=== PATIENT | female | born 1970 | race Caucasian/White ===

== ENCOUNTER 2019-09-28 18:18 | Emergency (ER) | payer OTHER, SELFPAY ==
--- NOTE | ~2019-09-28 | XR_ITS ---
XR knee RT min 4V, XR tibia fibula RT 2V 09/28/2019 19:03 INDICATION: Right knee and leg pain after recent injury PROCEDURE: 4 views right knee. 2 views right tibia/fibula. COMPARISON: No prior studies for comparison. FINDINGS: Fracture, dislocation or subluxation is not identified. Small joint effusion. Mild osteoart hritis of the right knee. No foreign bodies are identified. IMPRESSION: 1: No acute fracture. Reviewed, dictated and finalized at location A. IMPRESSION: 1: No acute fracture. IMPRESSION: 1: No acute fracture.
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
[2019-09-28 18:39] VITALS: BP 129/79; PULSE 68; RESP 16; TEMP 36.6; O2SAT 98
== END 2019-09-28 19:25 | disposition home or self-care (01) ==
PROVIDERS: Emergency Provider Nurse Practitioner Family; PCP Internal Medicine
DX: S89.91XA Unspecified injury of right lower leg, initial encounter (principal); X50.9XXA Other and unspecified overexertion or strenuous movements or postures, initial encounter; I10 Essential (primary) hypertension; K21.9 Gastro-esophageal reflux disease without esophagitis; E03.9 Hypothyroidism, unspecified
CPT/HCPCS: 73564; 73590; 99214; G0463

== ENCOUNTER 2020-08-31 08:58 | Outpatient (CLI) | payer OTHER, SELFPAY ==
--- NOTE | ~2020-08-31 | XR_ITS ---
EXAMINATION: XR foot LT min 3V EXAM DATE: 08/31/2020 09:27 INDICATION: No known recent injury provided at this time. Pain of the left foot. TECHNIQUE: Left foot dorsoplantar, lateral and oblique projections obtained and reviewed. There is n o prior study for comparison. FINDINGS: Left metatarsal bones unremarkable. Calcaneal Evaristo's deformity. There are no acute fra ctures or dislocations identified. There is no subcutaneous gas. The soft tissue is unremarkable. There are no radiopaque foreign bodies. There are no bony erosions identified. IMPRESSION: Calcaneal Evaristo's deformity. Reviewed, dictated and finalized at location A.
--- NOTE | ~2020-08-31 | XR_ITS ---
EXAMINATION: XR chest 2V 08/31/2020 09:27 INDICATION: Shortness of breath PROCEDURE: 2 view chest COMPARISON: 01/27/2012 FINDINGS: The lungs are clear. The cardiomediastinal silhouette is within normal limits. There are no pleural effusions. There is no pneumothorax suspected. IMPRESSION: 1: NO ACUTE CARDIOPULMONARY DISEASE. Reviewed, dictated and finalized at location B.
--- NOTE | ~2020-08-31 | XR_ITS ---
EXAMINATION: XR foot RT min 3V EXAM DATE: 08/31/2020 09:27 INDICATION: No known recent injury provided at this time. Pain of the right foot. TECHNIQUE: Right foot dorsoplantar, lateral and oblique projections obtained and reviewed. Correlati on is made to Lateral foot same date. FINDINGS: Right metatarsal bones unremarkable. Calcaneal Evaristo's deformity, symmetric to contrala teral side. There are no bony erosions identified. There are no acute fractures or dislocations ident ified. There is no subcutaneous gas. The soft tissue is unremarkable. There are no radiopaque for eign bodies. IMPRESSION: Calcaneal Evaristo's deformity. Reviewed, dictated and finalized at location A.
== END 2020-08-31 08:59 ==
PROVIDERS: Visit Provider Internal Medicine
DX: R06.02 Shortness of breath (principal); M79.671 Pain in right foot; M92.62 Juvenile osteochondrosis of tarsus, left ankle; M92.61 Juvenile osteochondrosis of tarsus, right ankle
CPT/HCPCS: 71046; 73630

== ENCOUNTER 2022-08-20 05:11 | Emergency (ER) | payer OTHER, SELFPAY ==
[2022-08-20] VITALS (7 sets, daily range): BP systolic 96–101; BP diastolic 72–79; PULSE 74–100; RESP 11–22; TEMP 36.6; O2SAT 93–98
--- NOTE | ~2022-08-20 | CT_ITS ---
EXAMINATION: CTA chest PE protocol DATE: 08/20/2022 06:29 INDICATION: Left chest pain. Left arm pain. TECHNIQUE: Computed tomography angiography (CTA) of the chest was performed with 100 mL Omnipaque-350 intravenous contrast timed to evaluate the pulmonary arteries. Coronal maximum intensity projection 3D-reconstructions were created by the technologist. Automated exposure control and iterative reconst ruction technique were employed. The dose-length product was 186.88 mGy-cm. COMPARISON: None. FINDINGS: The lungs demonstrate mild atelectasis. Calcified right lung nodules and calcified right hi lar lymph nodes are consistent with old granulomatous disease. No pleural effusion. The heart size is normal. No pericardial effusion. There are gallstones in the gallbladder. There is no pulmonary embo keaton. There is mild thoracic spondylosis. IMPRESSION: 1. No pulmonary embolus. Reviewed, dictated and finalized at location A. IMPRESSION: 1. No pulmonary embolus.
--- NOTE | ~2022-08-20 | XR_ITS ---
EXAMINATION: XR chest 2V DATE: 08/20/2022 05:42 INDICATION: Left chest pain. TECHNIQUE: Frontal and lateral views of the chest were obtained. COMPARISON: Chest 2 views 08/31/2020, chest CT 08/20/2022 FINDINGS: The chest demonstrates clear lungs without pneumonia, pleural effusion, or pneumothorax. Th e heart size is normal. Calcified right hilar lymph nodes are consistent with old granulomatous disea se. IMPRESSION: 1. No acute cardiopulmonary disease. Reviewed, dictated and finalized at location A.
--- NOTE | 2022-08-20 05:14 | ECG_ITS ---
Measurements Intervals [place] Rate: 95 P: 68 [place]: 180 QRS: -4 QRSD: 86 T: 24 QT: 350 QTc: 441 Interpretive Statements SINUS RHYTHM NONSPECIFIC T-WAVE ABNORMALITY- ANT/INF LEAD BORDERLINE ECG NO PREVIOUS ECG AVAILABLE FOR COMPARISON Electronically Signed On 08-20-2022 8:01:48 CDT by Carmelo Encinas D.O.
[2022-08-20] MEDS: ASPIRIN 81 MG CHEWABLE TABLET 324 MG PO (05:28)
[2022-08-20 05:31] LABS: Basophils Percent Auto 0.3 % (0.2-1.2); Eosinophils Absolute Auto 0.1 K/mm3 (0-0.3); Eosinophils Percent Auto 0.7 % (0-4.4); Hematocrit 44.5 % (37.0-47.0); Hemoglobin 15.6 g/dL (12.0-15.0); Immature Granulocyte Absolute 0.04 K/mm3 (0.00-0.031); Immature Granulocyte Percent A 0.4 % (0-0.5); Lymphocytes Absolute Auto 3.82 K/mm3 (0.9-3.2); Lymphocytes Percent Auto 36.3 % (18.3-44.2); Mean Corpuscular HGB Conc 35.1 g/dl (32-36); Mean Corpuscular Hemoglobin 34.1 pg (26-34); Mean Corpuscular Volume 97.4 fl (80-100); Mean Platelet Volume 10.4 fl (7.4-10.4); Monocytes Absolute Auto 0.8 K/mm3 (0.1-0.6); Monocytes Percent Auto 7.1 % (2.6-8.5); Neutrophils Absolute Auto 5.8 K/mm3 (1.3-6.7); Neutrophils Percent Auto 55.2 % (45.5-73.1); Platelet Count Result 280 k/mm3 (150-375); Red Blood Count 4.57 M/mm3 (4.2-5.4); Red Cell Distribution Width 12.7 % (11.5-14.5); White Blood Count 10.5 K/mm3 (4.5-10.0)
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
[2022-08-20 05:39] LABS: Alanine Aminotransferase 39 U/L (6-35); Albumin Level 4.9 g/dL (3.5-5.1); Alkaline Phosphatase 47 U/L (38-126); Anion Gap 13 mmol/L (8-16); Aspartate Amino Transferase 45 U/L (14-36); Bilirubin,Total 0.5 mg/dL (0.2-1.3); Blood Urea Nitrogen 8 mg/dL (7-17); Calcium 9.2 mg/dL (8.4-10.2); Carbon Dioxide 30 mmol/L (22-30); Chloride 104 mmol/L (98-107); Estimated CRCL calculation 74 ml/min; Estimated Glomerular Filt Rate > 60; Glucose 89 mg/dL (65-110); Lipase 63 U/L (23-300); Potassium 3.7 mmol/L (3.4-5.0); Sodium 147 mmol/L (137-145)
[2022-08-20 05:42] LABS: INR 0.9; Prothrombin Time 12.8 Seconds (11.1-14.7)
[2022-08-20 05:43] LABS: Partial Thromboplastin Time 25.2 SECONDS (22.3-36.8)
[2022-08-20 05:51] LABS: Troponin I < 0.012 ng/mL (0.000-0.034)
[2022-08-20 05:56] LABS: D Dimer 1.43 ug/mL (<0.48)
== END 2022-08-20 08:20 | disposition home or self-care (01) ==
PROVIDERS: Emergency Medicine; Emergency Provider Emergency Medicine
DX: R07.9 Chest pain, unspecified (principal); I10 Essential (primary) hypertension; M17.11 Unilateral primary osteoarthritis, right knee; M81.0 Age-related osteoporosis without current pathological fracture; Z87.891 Personal history of nicotine dependence; R94.31 Abnormal electrocardiogram [ECG] [EKG]
CPT/HCPCS: 36415; 71046; 71275; 80053; 83690; 84484; 85025; 85380; 85610; 85730; 93005; 99284; A9270; Q9967

== ENCOUNTER 2023-02-25 11:44 | Emergency (ER) | payer OTHER, SELFPAY ==
--- NOTE | ~2023-02-25 | XR_ITS ---
Right Hand Technique: PA, oblique, and lateral views were obtained. Clinical History: Pain Findings: No acute fracture or dislocation is seen. Osseous alignment is anatomic. Joint spaces are p reserved. Soft tissues are unremarkable. Impression: Unremarkable right hand. Reviewed, dictated and finalized at location M. [facility] Impression: Unremarkable right hand.
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
[2023-02-25 12:05] VITALS: BP 96/62; PULSE 73; RESP 16; TEMP 36.4; O2SAT 99
[2023-02-25 12:07] VITALS: BP 96/62; PULSE 73; RESP 16; TEMP 36.4; O2SAT 99
== END 2023-02-25 12:57 | disposition home or self-care (01) ==
PROVIDERS: Emergency Provider Nurse Practitioner Family
DX: S63.641A Sprain of metacarpophalangeal joint of right thumb, initial encounter (principal); V86.09XA Driver of other special all-terrain or other off-road motor vehicle injured in traffic accident, initial encounter; Z87.891 Personal history of nicotine dependence; M17.11 Unilateral primary osteoarthritis, right knee; I10 Essential (primary) hypertension; M81.0 Age-related osteoporosis without current pathological fracture
CPT/HCPCS: 73130; 99213; G0463